=== PATIENT | male | born 1955 | race Caucasian/White ===

== ENCOUNTER → 2023-11-04 11:12 | Outpatient (CLI) | payer MEDICARE, SELFPAY ==
--- NOTE | 2023-11-04 11:15 | DI.MRI.S_ITS ---
PROCEDURE: MR LUMBAR SPINE WO CON INDICATIONS: Radiculopathy, lumbar region TECHNIQUE: Noncontrast sagittal T1 spin echo and T2 fast echo, sagittal STIR, and T2 fast spin echo through the lumbar spine. In cases with scoliosis, additional coronal T2 fast spin echo may be performed. COMPARISON: Outside Film, CR, XR LUMBAR SPINE 2 OR 3 VIEWS, 02/18/2023, 19:11. FINDINGS: Image quality: Excellent. Alignment and Curvature: S1 is partially lumbarized on the left. Remote posterior decompressive laminectomy at L4-L5 and L5-S1. Trace retrolisthesis of L2 on L3, L3 on L4, and L5 on S1. Mild levocurvature. Bone Marrow: Marrow is of normal overall signal. No acute vertebral body compression fractures. Spinal Cord: Conus medullaris terminates at the top of L1 level. Visualized cord demonstrates normal signal and size. Paraspinous Soft Tissues: No paravertebral masses. T12-L1: No significant canal stenosis or foraminal stenosis. Facet hypertrophy. L1-L2: Disc bulge. Facet and ligament hypertrophy. Borderline canal stenosis. No significant foraminal stenosis. L2-L3: Diffuse disc bulge. Facet and ligament hypertrophy. Epidural lipomatosis. Mild canal stenosis. [id number] bilateral foraminal stenosis. L3-L4: Moderately large diffuse broad-based posterior disc protrusion. Facet and ligament hypertrophy. Moderate to severe central canal stenosis. Severe bilateral lateral recess stenosis, left greater than right. [id number] right foraminal narrowing. Moderate left foraminal narrowing with mild flattening deformity on the exiting left L3 nerve root. L4-L5: Normal appearance remote posterior decompressive laminectomy. Facet hypertrophy. No canal stenosis. Mild right foraminal narrowing. On the left, there is a foraminal disc protrusion and facet hypertrophy resulting in severe left foraminal narrowing with left foraminal L4 nerve root impingement. L5-S1: Remote posterior decompressive laminectomy. No canal stenosis. Partial lumbarization of S1. Moderate to severe right foraminal narrowing with a degree of right foraminal L5 nerve root impingement. Left foramen is patent. IMPRESSION: 1. There are 5 completely lumbarized non rib-bearing vertebral bodies. S1 is partially lumbarized. 2. Using the numbering system above, there is remote posterior decompressive laminectomy at L4-L5 and L5-S1. 3. Multilevel underlying facet arthropathy. 4. Findings are most significant at L3-L4 and L4-L5. 5. At L3-L4, there is moderate to severe central canal stenosis and severe bilateral lateral recess stenosis. 6. At L4-L5, there is a left foraminal disc protrusion which contributes to severe left foraminal narrowing and left L4 foraminal nerve root impingement. 7. There is mild canal stenosis at L2-L3. Dictated by: Oliver Contreras M.D. on 11/04/2023 at 16:06 Approved by: Oliver Contreras M.D. on 11/04/2023 at 16:15
== END ==
LOC: MRI 11:14
PROVIDERS: Referring Provider Physician Assistant Surgical; Visit Provider Physician Assistant Surgical
DX: M47.26 Other spondylosis with radiculopathy, lumbar region (principal); M51.16 Intervertebral disc disorders with radiculopathy, lumbar region; M48.061 Spinal stenosis, lumbar region without neurogenic claudication; M43.27 Fusion of spine, lumbosacral region; M41.9 Scoliosis, unspecified; R26.81 Unsteadiness on feet
CPT/HCPCS: 72148